=== PATIENT | female | born 1955 | race Caucasian/White ===

== ENCOUNTER 2023-05-31 08:05 | Outpatient (AMB) | payer OTHER, SELFPAY ==
--- NOTE | 2023-05-31 08:06 | MHC.PC.OV ---
Vital Signs 05/31/23 08:07 Height 5 ft 1 in Weight 157 lb BMI 29.7 BP 136/80 Blood Pressure Location Lt brachial Position Sitting Pulse 87 Pulse Source Pulse Oximeter Pulse Oximetry (%) 99 Oxygen Delivery Method Room Air Intake Visit Reasons: PE Intake Note: Pt is here today for PE. Allergies banana Adverse Reaction (Verified 05/31/23 08:12) Swelling bee venom protein (honey bee) Adverse Reaction (Verified 05/31/23 08:12) Rash egg Adverse Reaction (Verified 05/31/23 08:12) Swelling influenza virus vaccine, specific Adverse Reaction (Verified 05/31/23 08:12) Swelling milk Adverse Reaction (Verified 05/31/23 08:12) Diarrhea orange Adverse Reaction (Verified 05/31/23 08:12) Swelling Medication List - Last Reconciled 05/31/23 by Dodie Mills MD thyroid (pork) ([place] Thyroid) 180 mg PO DAILY Tobacco use date assessed: 05/31/23 Fall risk assessment: No Falls in past year Last assessed Fall Risk: 05/31/23 Dental Screening Dental Screen Date: 05/31/23 Did you have a dental visit in the last 12 months?: Yes Did you have a dental problem in the last 6 months where you did not have access to dental care?: No Was dental information given to patient?: Patient has dentist HPI PE HPI Details Patient presents for physical. She is building a new house next to her daughter's. [facility] Medical History Plantar fascia syndrome Contact dermatitis Normal pelvic exam Normal breast exam Hypothyroid Jj's disease Annual physical exam Surgical History Hx of colonoscopy Social History Household Members Other:: lives with son, works at [employer], Housing: House Patient Tobacco Use Status: Former Tobacco user Years Smoked: 5 yrs e-Cigarette/Vaping Use: Never Used Current occupational status: employed Cognitive needs: No Hearing needs: No Vision needs: No Questionnaire PHQ-9 Over the last 2 weeks, how often have you been bothered by any of the following problems? 1. Little interest or pleasure in doing things: not at all 2. Feeling down, depressed, or hopeless: not at all 3. Trouble falling or staying asleep, or sleeping too much: not at all 4. Feeling tired or having little energy: not at all 5. Poor appetite or overeating: not at all 6. Feeling bad about yourself - or that you are a failure or have let yourself or your family down: not at all 7. Trouble concentrating on things, such as reading the newspaper or watching television: not at all 8. Moving or speaking so slowly that other people could have noticed. Or the opposite - being so fidgety or restless that you have been moving around a lot more than usual: not at all 9. Thoughts that you would be better off or of hurting yourself in some way: not at all Total score: 0 Depression Screening Interpretation: Negative Depression Screening Done: Yes Source: Developed by Drs. Chacorta Deleon, Carine Boudreaux, Jerry Manning and colleagues, with an educational chelsea from [employer]. Thrive Questionnaire Date Thrive assessed: 05/31/23 I am a: Patient What is your living situation today?: I have a steady place to live Within the past 12 months, did the food you bought not last and you didn't have the money to get more?: Never true Within the past 12 months, did you worry whether your food would run out before you got money to buy more?: Never true Do you have trouble paying for medicines?: No Do you have trouble getting transportation to medical appointments?: No Do you have trouble paying your heating and electricity bill?: No Do you have trouble taking care of your child, family member or friend?: No Do you have trouble with day-to-day activities such as bathing, preparing meals, shopping, managing finances, etc.?: No Are you currently unemployed and looking for a job?: No Are you interested in more education?: No Please select the resources that you would like help with: None AUDIT C Alcohol Use Questionnaire (AUDIT-C) 1. How often do you have a drink containing alcohol?: Never 3. How often do you have six or more drinks on one occasion?: Never Total Score: 0 JOANNE-7 AMB Questionnaire JOANNE-7 Date JOANNE - 7 assessed: 05/31/23 Feeling nervous, anxious, or on edge: 0 = Not at all Not being able to stop or control worryin = Not at all Worrying too much about different things: 0 = Not at all Trouble relaxin = Not at all Being so restless that it is hard to sit still: 0 = Not at all Becoming easily annoyed or irritable: 0 = Not at all Feeling afraid as if something awful might happen: 0 = Not at all Total JOANNE-7 score (0-4 normal; 5-9 mild; 10-14 moderate; 15-21 severe): 0 Source: Developed by Drs. Chacorta Deleon, Carine Boudreaux, Jerry Manning and colleagues, with an educational chelsea from [employer]. Physical exam (Primary Care) Vital Signs: Last Vital Signs Pulse 87 05/31/23 08:07 BP 136/80 05/31/23 08:07 Pulse Ox 99 05/31/23 08:07 Oxygen Delivery Method Room Air 05/31/23 08:07 BMI result Body Mass Index 29.7 Tobacco/Smoking Status: Tobacco use Status Tobacco use date assessed 05/31/23 05/31/23 08:13 Patient Tobacco Use Status Former Tobacco user 05/31/23 08:08 e-Cigarette/Vaping Use Never Used 05/31/23 08:08 PHQ-9: PHQ-9 Score PHQ-9: Total score 0 05/31/23 08:13 Depression Screening Interpretation: Negative Thrive Assessment: Date of Thrive Assessment Date Thrive assessed 05/31/23 05/31/23 08:13 Const General: no acute distress HENMT Head: Yes normal to inspection Ears: hearing grossly normal bilaterally General nose exam: Normal external nose present Face and sinus: Yes normal facial exam Mouth: Normal oral and palatal mucosa present Throat: Yes posterior oropharynx normal Eyes General: appearance normal, both eyes and all related structures Neck Neck: Yes no lymphadenopathy and Yes supple Resp Effort & Inspection: normal respiratory effort Auscultation: clear to auscultation bilaterally Cardio Rhythm: regular rhythm Heart sounds: S1 normal heart sound present and S2 normal heart sound present GI Inspection: Yes normal to inspection Palpation (GI): Soft to palpation Percussion: Yes normal to percussion Auscultation: normal bowel sounds Assessment and Plan Assessment & Plan (1) Hypothyroid: Code(s): E03.9 - Hypothyroidism, unspecified Plan: Continue thyroid replacement check TSH, patient will have a labs at [employer] (2) Annual physical exam: Code(s): Z00.00 - Encounter for general adult medical examination without abnormal findings Plan: Well-balanced diet and regular physical activity discussed with the patient. She declined mammogram Pap smear colonoscopy and Cologuard. Orders: Orders TSH reflex Free T4 Today E03.9 - Hypothyroidism, unspecified, Z00.00 - Encounter for general adult medical examination without abnormal findings Comprehensive [place]. Panel Fast Today E03.9 - Hypothyroidism, unspecified, Z00.00 - Encounter for general adult medical examination without abnormal findings Complete Blood Count Auto Diff Today E03.9 - Hypothyroidism, unspecified, Z00.00 - Encounter for general adult medical examination without abnormal findings Lipid Panel Today E03.9 - Hypothyroidism, unspecified, Z00.00 - Encounter for general adult medical examination without abnormal findings Medications: Refilled thyroid (pork) ([place] Thyroid) 180 mg PO DAILY 90 tabs 3RF Coding Level of Care Code Est Pt Prev Care >65y(36444) Diagnoses Hypothyroid E03.9 Annual physical exam Z00.00
[2023-05-31 08:07] VITALS: BP 136/80; PULSE 87; O2SAT 99; BMI 29.7
== END 2023-05-31 08:46 | disposition home or self-care (01) ==
PROVIDERS: Visit Provider Internal Medicine
DX: E03.9 Hypothyroidism, unspecified (principal); Z00.00 Encounter for general adult medical examination without abnormal findings
CPT/HCPCS: 99397

== ENCOUNTER → 2024-06-26 08:11 | Outpatient (BNVA) | payer OTHER, SELFPAY | PROVIDERS: PCP Internal Medicine; Visit Provider Internal Medicine ==

== ENCOUNTER 2024-06-26 08:14 | Outpatient (AMB) | payer OTHER, SELFPAY ==
--- NOTE | 2024-06-26 08:14 | MHC.PC.OV ---
Vital Signs 06/26/24 08:15 Height 5 ft 1 in Weight 161 lb BMI 30.4 BP 135/80 Blood Pressure Location Rt brachial Position Sitting Pulse 87 Pulse Source Pulse Oximeter Pulse Oximetry (%) 100 Oxygen Delivery Method Room Air Intake Visit Reasons: Annual PE Intake Note: Pt is here today for her PE Allergies banana Adverse Reaction (Verified 06/26/24 08:14) Swelling bee venom protein (honey bee) Adverse Reaction (Verified 06/26/24 08:14) Rash egg Adverse Reaction (Verified 06/26/24 08:14) Swelling influenza virus vaccine, specific Adverse Reaction (Verified 06/26/24 08:14) Swelling milk Adverse Reaction (Verified 06/26/24 08:14) Diarrhea orange Adverse Reaction (Verified 06/26/24 08:14) Swelling Medication List - Last Reconciled 06/26/24 by Dodie Mills MD thyroid (pork) ([place] Thyroid) 180 mg PO DAILY Tobacco use date assessed: 06/26/24 Fall risk assessment: No Falls in past year Last assessed Fall Risk: 06/26/24 Dental Screening Dental Screen Date: 06/26/24 Did you have a dental visit in the last 12 months?: Yes Did you have a dental problem in the last 6 months where you did not have access to dental care?: No Was dental information given to patient?: Patient has dentist HPI Annual PE HPI Details Pt presents for PE. [facility] Medical History Plantar fascia syndrome Contact dermatitis Normal pelvic exam Normal breast exam Hypothyroid Jj's disease Annual physical exam Surgical History Hx of colonoscopy Social History Household Members Other:: lives with son, works at [employer], Housing: House Patient Tobacco Use Status: Former Tobacco user Years Smoked: 5 yrs e-Cigarette/Vaping Use: Never Used Current occupational status: employed Cognitive needs: No Hearing needs: No Vision needs: No Questionnaire Thrive Questionnaire Date Thrive assessed: 05/31/23 JOANNE-7 AMB Questionnaire JOANNE-7 Date JOANNE - 7 assessed: 05/31/23 Source: Developed by Drs. Chacorta Deleon, CarineJerry Rivera and colleagues, with an educational chelsea from [employer]. Review of Systems Const All systems reviewed & are unremarkable except as noted in HPI and below Eyes Reports no additional complaints ENT Reports no additional complaints Card Reports no additional complaints Resp Reports no additional complaints GI Reports no additional complaints Reports no additional complaints Skin/Breast Reports system reviewed and no additional complaints, except as documented Neuro Reports no additional complaints Physical exam (Primary Care) Vital Signs: Last Vital Signs Pulse 87 06/26/24 08:15 BP 140/80 H 06/26/24 08:15 Pulse Ox 100 06/26/24 08:15 Oxygen Delivery Method Room Air 06/26/24 08:15 BMI result Body Mass Index 30.4 Tobacco/Smoking Status: Tobacco use Status Tobacco use date assessed 06/26/24 06/26/24 08:18 Patient Tobacco Use Status Former Tobacco user 06/26/24 08:18 e-Cigarette/Vaping Use Never Used 06/26/24 08:18 Thrive Assessment: Date of Thrive Assessment Date Thrive assessed 05/31/23 06/26/24 08:18 Const General: no acute distress HENMT Head: Yes normal to inspection Ears: hearing grossly normal bilaterally General nose exam: Normal external nose present Face and sinus: Yes normal facial exam Mouth: Normal oral and palatal mucosa present Throat: Yes posterior oropharynx normal Eyes General: appearance normal, both eyes and all related structures Neck Neck: Yes no lymphadenopathy and Yes supple Resp Effort & Inspection: normal respiratory effort Auscultation: clear to auscultation bilaterally Cardio Rhythm: regular rhythm Heart sounds: S1 normal heart sound present and S2 normal heart sound present GI Inspection: Yes normal to inspection Palpation (GI): Soft to palpation Percussion: Yes normal to percussion Auscultation: normal bowel sounds Coding Level of Care Code Est Pt Prev Care >65y(57284) Diagnoses Annual physical exam Z00.00 Hypothyroid E03.9 Assessment & Plan Assessment & Plan (1) Annual physical exam: Code(s): Z00.00 - Encounter for general adult medical examination without abnormal findings Category: Medical Plan: well balanced diet, regular exercise, weight loss discussed with the patient. She refused mammogram colonoscopy (2) Hypothyroid: Code(s): E03.9 - Hypothyroidism, unspecified Category: Medical Plan: cont [place] thyroid and check TSH Orders: Orders TSH reflex Free T4 Today E03.9 - Hypothyroidism, unspecified Medications: Refilled thyroid (pork) ([place] Thyroid) 180 mg PO DAILY 90 tabs 3RF
[2024-06-26 08:15] VITALS: BP 135/80; PULSE 87; O2SAT 100; BMI 30.4
--- OUTSIDE RECORDS SUMMARY | 2024-07-02 16:25 | XMS_ITS | Patient Health Record ---
Author Organization [facility] [place] Address [address] [place] [address] Care Team Providers Care Fairing Man Name Role Phone Lilia Bowles DO Primary Care Provider José Black Unavailable [phone] Allergies Allergen (clinical drug ingredient) Drug/Non Drug Allergy documented on EMR Reaction Allergy Type Onset Date Status Influenza Vac Typ A&B Surf Ant swelling of eyes and face Drug Allergy Active Reason For Referral No Information Medications Medication SIG (Take, Route, Fr equency, Duration) Notes Start Date End Date Status Brush Thyroid Activ e Social History Tobacco use other than smoking: Question Answer Notes Are you an other tobacco user? No Plan Of Treatment Pending Test Test Name Order Date X ray : Ankle, left 2V 09/05/2016 X ray : Foot, left 2V 09/05/2016 Insurance Providers Payer Name Payer Address Payer Phone Subscriber Number Group Number Insured Name Patient Relationship to Insured Coverage Start Date Coverage End Date [facility] [address] [place] [address] [phone] [id number] EmeryIrene gilbert Self - patient is the insured 9 Medical (General) History Medical History History ICD Code Cataracts Chicken pox Measles Mumps Thyroid disorder
== END 2024-06-26 09:31 | disposition home or self-care (01) ==
PROVIDERS: PCP Internal Medicine; Visit Provider Internal Medicine
DX: Z00.00 Encounter for general adult medical examination without abnormal findings (principal); E03.9 Hypothyroidism, unspecified

== ENCOUNTER 2025-06-27 12:45 | Outpatient (AMB) | payer OTHER, SELFPAY ==
--- NOTE | 2025-06-27 12:46 | MHC.PC.OV ---
Vital Signs 06/27/25 12:47 Height 5 ft 1 in Weight 156 lb BMI 29.5 BP 132/82 Blood Pressure Location Lt brachial Position Sitting Respiration 17 Pulse 96 Pulse Source Pulse Oximeter Temp 97.3 F Temp Source Oral Pulse Oximetry (%) 99 Oxygen Delivery Method Room Air Intake Visit Reasons: Twisted ankle Intake Note: Pt is here today for PE. Allergies banana Adverse Reaction (Verified 06/27/25 12:49) Swelling bee venom protein (honey bee) Adverse Reaction (Verified 06/27/25 12:49) Rash egg Adverse Reaction (Verified 06/27/25 12:49) Swelling influenza virus vaccine, specific Adverse Reaction (Verified 06/27/25 12:49) Swelling milk Adverse Reaction (Verified 06/27/25 12:49) Diarrhea orange Adverse Reaction (Verified 06/27/25 12:49) Swelling Medication List - Last Reconciled 06/27/25 by Dodie Mills MD thyroid (pork) ([place] Thyroid) 180 mg PO DAILY Tobacco use date assessed: 06/27/25 Fall risk assessment: 1 Fall in past year Last assessed Fall Risk: 06/27/25 Dental Screening Dental Screen Date: 06/27/25 Did you have a dental visit in the last 12 months?: Yes Did you have a dental problem in the last 6 months where you did not have access to dental care?: No Was dental information given to patient?: Patient has dentist HPI HPI Comments History of Present Illness Details Pt presents for PE. [facility] Medical History Plantar fascia syndrome Contact dermatitis Normal pelvic exam Normal breast exam Hypothyroid Jj's disease Annual physical exam Surgical History Hx of colonoscopy Social History Household Members Other:: lives with son, works at [employer], Housing: House Patient Tobacco Use Status: Former Tobacco user Years Smoked: 5 yrs e-Cigarette/Vaping Use: Never Used service: No Current occupational status: employed Cognitive needs: No Hearing needs: No Vision needs: No Questionnaire PHQ-9 Over the last 2 weeks, how often have you been bothered by any of the following problems? 1. Little interest or pleasure in doing things: not at all 2. Feeling down, depressed, or hopeless: not at all 3. Trouble falling or staying asleep, or sleeping too much: not at all 4. Feeling tired or having little energy: not at all 5. Poor appetite or overeating: not at all 6. Feeling bad about yourself - or that you are a failure or have let yourself or your family down: not at all 7. Trouble concentrating on things, such as reading the newspaper or watching television: not at all 8. Moving or speaking so slowly that other people could have noticed. Or the opposite - being so fidgety or restless that you have been moving around a lot more than usual: not at all 9. Thoughts that you would be better off or of hurting yourself in some way: not at all Total score: 0 Depression Screening Interpretation: Negative Depression Screening Done: Yes 37380 - PHQ-9 Billing: Yes Source: Developed by Drs. Chacorta Deleon, Carine Boudreaux, Jerry Manning and colleagues, with an educational chelsea from [employer]. Thrive Questionnaire Date Thrive assessed: 06/27/25 I am a: Patient What is your living situation today?: I choose not to answer this question Within the past 12 months, did the food you bought not last and you didn't have the money to get more?: I choose not to answer this question Within the past 12 months, did you worry whether your food would run out before you got money to buy more?: I choose not to answer this question Do you have trouble paying for medicines?: I choose not to answer this question Do you have trouble getting transportation to medical appointments?: I choose not to answer this question Do you have trouble paying your heating and electricity bill?: I choose not to answer this question Do you have trouble taking care of your child, family member or friend?: I choose not to answer this question Do you have trouble with day-to-day activities such as bathing, preparing meals, shopping, managing finances, etc.?: I choose not to answer this question Are you currently unemployed and looking for a job?: I choose not to answer this question Are you interested in more education?: I choose not to answer this question THRIVE Score: 0 AUDIT C Alcohol Use Questionnaire (AUDIT-C) 1. How often do you have a drink containing alcohol?: Monthly or less 2. How many drinks containing alcohol do you have on a typical day when you are drinking?: 1 or 2 3. How often do you have six or more drinks on one occasion?: Never Total Score: 1 JOANNE-7 AMB Questionnaire JOANNE-7 Date JOANNE - 7 assessed: 06/27/25 Feeling nervous, anxious, or on edge: 0 = Not at all Not being able to stop or control worryin = Not at all Worrying too much about different things: 0 = Not at all Trouble relaxin = Not at all Being so restless that it is hard to sit still: 0 = Not at all Becoming easily annoyed or irritable: 0 = Not at all Feeling afraid as if something awful might happen: 0 = Not at all Total JOANNE-7 score (0-4 normal; 5-9 mild; 10-14 moderate; 15-21 severe): 0 Source: Developed by Drs. Chacorta Deleon, Carine Boudreaux, Jerry Manning and colleagues, with an educational chelsea from [employer]. JOANNE-7 Assessment Billing JOANNE-7 Assessment Tool: JOANNE-7 Assessment 54354 Review of Systems Const All systems reviewed & are unremarkable except as noted in HPI and below Eyes Reports no additional complaints ENT Reports no additional complaints Card Reports no additional complaints Resp Reports no additional complaints GI Reports no additional complaints Reports no additional complaints Musc Reports no additional complaints Physical exam (Primary Care) Vital Signs: Last Vital Signs Temp 97.3 F 06/27/25 12:47 Pulse 96 06/27/25 12:47 Resp 17 06/27/25 12:47 BP 132/82 06/27/25 12:47 Pulse Ox 99 06/27/25 12:47 Oxygen Delivery Method Room Air 06/27/25 12:47 BMI result Body Mass Index 29.5 Tobacco/Smoking Status: Tobacco use Status Tobacco use date assessed 06/27/25 06/27/25 12:59 Patient Tobacco Use Status Former Tobacco user 06/27/25 12:46 e-Cigarette/Vaping Use Never Used 06/27/25 12:46 PHQ-9: PHQ-9 Score PHQ-9: Total score 0 06/27/25 13:10 Depression Screening Interpretation: Negative Thrive Assessment: Date of Thrive Assessment Date Thrive assessed 06/26/25 06/27/25 12:46 Const General: no acute distress HENMT Head: Yes normal to inspection Ears: TM's normal bilaterally Mouth: Normal oral and palatal mucosa present Eyes General: appearance normal, both eyes and all related structures Neck Neck: Yes no lymphadenopathy and Yes supple Resp Effort & Inspection: normal respiratory effort Auscultation: clear to auscultation bilaterally Cardio Rhythm: regular rhythm Heart sounds: S1 normal heart sound present and S2 normal heart sound present GI Inspection: Yes normal to inspection Palpation (GI): Soft to palpation Percussion: Yes normal to percussion Auscultation: normal bowel sounds Coding Level of Care Code Est Pt Prev Care >65y(54418) Diagnoses Annual physical exam Z00.00 Hypothyroid E03.9 Additional Codes JOANNE-7 Assessment Billing - JOANNE-7 Assessment Tool: JOANNE-7 Assessment [id number] ([id number]) PHQ-9 - 93208 - PHQ-9 Billing: Yes ([id number]) Assessment & Plan Assessment & Plan (1) Annual physical exam: Code(s): Z00.00 - Encounter for general adult medical examination without abnormal findings Category: Medical Plan: well-balanced diet regular physical activity discussed with the patient. She declined mammogram colonoscopy and DEXA (2) Hypothyroid: Code(s): E03.9 - Hypothyroidism, unspecified Category: Medical Plan: continue [place] thyroid and check TSH level Orders: Orders Lipid Panel Today E03.9 - Hypothyroidism, unspecified, E55.9 - Vitamin D deficiency, unspecified, Z00.00 - Encounter for general adult medical examination without abnormal findings Vitamin D 25-OH Total Today E03.9 - Hypothyroidism, unspecified, E55.9 - Vitamin D deficiency, unspecified, Z00.00 - Encounter for general adult medical examination without abnormal findings Comprehensive [place]. Panel Fast Today E03.9 - Hypothyroidism, unspecified, E55.9 - Vitamin D deficiency, unspecified, Z00.00 - Encounter for general adult medical examination without abnormal findings Complete Blood Count Auto Diff Today E03.9 - Hypothyroidism, unspecified, E55.9 - Vitamin D deficiency, unspecified, Z00.00 - Encounter for general adult medical examination without abnormal findings TSH reflex Free T4 Today E03.9 - Hypothyroidism, unspecified, E55.9 - Vitamin D deficiency, unspecified, Z00.00 - Encounter for general adult medical examination without abnormal findings UA w Microscopic Today E03.9 - Hypothyroidism, unspecified, E55.9 - Vitamin D deficiency, unspecified, Z00.00 - Encounter for general adult medical examination without abnormal findings
[2025-06-27 12:47] VITALS: BP 132/82; PULSE 96; RESP 17; TEMP 36.3; O2SAT 99; BMI 29.5
--- OUTSIDE RECORDS SUMMARY | 2025-06-27 16:36 | XMS_ITS | Clinical Summary ---
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 90 tablet 3 06/03/2020 Active Active Problems Problem Noted Date Diagnosed Date Acquired hypothyroidism 08/14/2018 Family History Medical History Relation Name Comments Cerebral aneurysm Brother Stroke Brother Cerebral aneurysm Father Stomach cancer Mother Cerebral aneurysm Sister Relation Name Status Comments Brother Father (Age 60) Mother (Age 83) Sister Social History Tobacco Use Types Packs/Day Years Used Date Smoking Tobacco: Never Smokeless Tobacco: Never Alcohol Use Standard Drinks/Week Comments Yes 1 (1 standard drink = 0.6 oz pur e alcohol) occasional Sex and Gender Information Value Date Recorded Sex Assigned at Not on file Gender Identity Not on file Sexual Orientation Not on file Last Filed Vital Signs Vital Sign Reading Time Taken Comments Blood Pressure 134/74 06/03/2020 2:24 PM EST Pulse 97 06/03/2020 2:24 PM EST Temperature 36.2 C (97.1 F) 06/03/2020 2:24 PM EST Respiratory Rate 16 06/03/2020 2:24 PM EST Oxygen Saturation 97% 06/03/2020 2:24 PM EST Inhaled Oxygen Concentration - - Weight 73.8 kg (162 lb 11.2 oz) 06/03/2020 2:24 PM EST Height 156.2 cm (5' 1.5 ) 06/03/2020 2:24 PM EST Body Mass Index 30.24 06/03/2020 2:24 PM EST Plan of Treatment Health Maintenance Due Date Last Done Comments Hepatitis C Screening 1955 COVID-19 Vaccine (#1) 02/23/1956 Preventative Health Evaluation 1974 Colon Cancer Screening (Colonoscopy) 2001 Breast Cancer Screening (Mammogram) 05/16/2019 05/16/2017 BMI Counseling 09/03/2020 09/03/2019, 09/03/2019, 08/14/2018 Depression Screening 11/04/2020 11/05/2019, 08/14/2018 Fall Risk Assessment 2021 Osteoporosis Screening (DEXA Scan) 2021 Pneumococcal Vaccine (1 of 1 - PCV) 2021 Influenza Vaccine (#1) 2025 0 (Declined) DTap / Tdap / Td (2 - Td or Tdap) 09/03/2029 09/03/2019 (Declined) RSV Adult > 60+ Yrs or (1 - 1-dose 75+ series) 2031 Shingrix-Zoster Vaccine Addressed 11/05/19 20 (Declined), 09/03/2019 (Declined) Overridden with the intention of not completing the topic Hepatitis B Vaccines Aged Out No long er eligible based on patient's age to complete this topic RSV Ped < 20 months Aged Out No longe r eligible based on patient's age to complete this topic Insurance Payer Benefit Plan / Group Subscriber ID Effective Dates Phone Address [facility] [id number] 2018-Present [address] [facility] [address] [place] [id number] HMO
== END 2025-06-27 15:47 | disposition home or self-care (01) ==
PROVIDERS: PCP Internal Medicine; Visit Provider Internal Medicine
DX: Z00.00 Encounter for general adult medical examination without abnormal findings (principal); E03.9 Hypothyroidism, unspecified

== ENCOUNTER → 2025-06-27 12:45 | Outpatient (BNVA) | payer OTHER, SELFPAY | PROVIDERS: PCP Internal Medicine; Visit Provider Internal Medicine | DX: Z00.00 Encounter for general adult medical examination without abnormal findings (principal); E03.9 Hypothyroidism, unspecified | CPT/HCPCS: 96127 ==